=== PATIENT | female | born 1980 | race Caucasian/White ===

== ENCOUNTER 2019-01-31 14:57 | Emergency (ER) | payer MEDICAID ==
[~2019-01-31] VITALS: Ht 163.8 cm; Wt 84.2 kg
[2019-01-31] MEDS ORDERED: AZITHROMYCIN 500 MG TABLET PO ONE (16:00)
[2019-01-31] MEDS ORDERED: IPRATROPIUM/ALBUTEROL 0.5-3(2.5)MG/3ML NEB HHN ONE (16:00)
[2019-01-31] MEDS ORDERED: PREDNISONE 20MG TABLET PO STA (16:00)
[2019-01-31 18:09] VITALS: BP 112/66
== END 2019-01-31 18:10 | disposition home or self-care (01) ==
LOC: ER 14:57
DX: J45.909 Unspecified asthma, uncomplicated (principal); Z88.0 Allergy status to penicillin
CPT/HCPCS: 71045; 81025; 94640; 99283; J7512; J7620; Z7610

== ENCOUNTER 2023-07-28 09:53 | Emergency (ER) | payer MEDICAID ==
[~2023-07-28] VITALS: Ht 162.6 cm; Wt 82.0 kg
[2023-07-28 09:57] VITALS: BP 138/91; PULSE 70; RESP 16; TEMP 98.9; O2SAT 98
[2023-07-28 11:44] LABS: BASOPHILS % 0.1 % (0.0-2.0); EOSINOPHILS % 0.5 % (0.0-5.0); HEMATOCRIT. 44.2 % (36.0-48.0); HEMOGLOBIN. 14.4 g/dL (12.0-16.0); LYMPHOCYTES % 10.8 % (20.0-50.0); MEAN CORPUSCULAR HEMOGLOBIN 29.9 pg (28.0-32.0); MEAN CORPUSCULAR HGB CONC 32.5 g/dL (31.0-37.0); MEAN PLATELET VOLUME 9.8 fl (7.4-10.4); MONOCYTES % 5.6 % (2.0-8.0); PLATELET 300 x1000/uL (130-400); RED BLOOD CELL COUNT 4.81 mill/uL (4.2-5.4); RED CELL DISTRIBUTION WIDTH 13.8 % (11.6-14.6); WHITE BLOOD COUNT 12.2 x1000/uL (4.5-11.0)
[2023-07-28 11:56] LABS: HCG SCREEN NEGATIVE
[2023-07-28 12:01] LABS: ALANINE AMINOTRANSFERASE 20 IU/L (10-49); ASPARTATE AMINOTRANSFERASE 16 IU/L (<34); BILIRUBIN TOTAL 0.4 mg/dL (0.1-1.0); CALCIUM 9.4 mg/dL (8.7-10.4); CARBON DIOXIDE 28 mEq/L (21-32); CHLORIDE 103 mEq/L (98-107); CREATININE 0.6 mg/dL (0.6-1.0); GLUCOSE 107 mg/dL (70-105); SODIUM 138 mEq/L (136-145); UREA NITROGEN BLOOD 11 mg/dL (9-23)
== END 2023-07-28 13:10 | disposition home or self-care (01) ==
LOC: ER 09:53
DX: J06.9 Acute upper respiratory infection, unspecified (principal); M19.90 Unspecified osteoarthritis, unspecified site; J45.909 Unspecified asthma, uncomplicated; Z88.0 Allergy status to penicillin
CPT/HCPCS: 36415; 80053; 84703; 85025; 93005; 99284